=== PATIENT | male | born 1985 | race African-American/Black ===

== ENCOUNTER 2024-07-01 01:15 | Emergency (ER) | payer OTHER ==
[~2024-07-01] VITALS: Ht 182.9 cm; Wt 82.0 kg
[2024-07-01 01:30] VITALS: BP 152/84; PULSE 84; RESP 16; TEMP 36.8; O2SAT 100
== END 2024-07-01 03:13 | disposition home or self-care (01) ==
LOC: ER 01:15
DX: M54.50 Low back pain, unspecified (principal); M54.2 Cervicalgia; V49.40XA Driver injured in collision with unspecified motor vehicles in traffic accident, initial encounter; Y93.89 Activity, other specified; Y92.89 Other specified places as the place of occurrence of the external cause; Y99.8 Other external cause status
CPT/HCPCS: 71045; 99283